=== PATIENT | female | born 1955 | race Caucasian/White ===

== ENCOUNTER 2024-02-01 13:01 | Emergency (ER) | payer OTHER, SELFPAY ==
[2024-02-01 13:14] VITALS: BP 158/77; PULSE 85; TEMP 37.1; O2SAT 99; BMI 37.2
--- NOTE | 2024-02-01 13:20 | ED_ITS ---
HPI HPI - General Adult General Chief complaint: Recheck/Abnormal Lab/Rx Stated complaint: CONGESTION Time Seen by Provider: 02/01/24 13:16 Source: patient Mode of arrival: walk-in Limitations: no limitations History of Present Illness HPI narrative: 68-year-old female presents to the emergency department for a COVID test. She has no symptoms. She has been around her son who has some symptoms and was around somebody who has COVID. She has no fever cough or shortness of breath or congestion. Related Data Allergies Allergy/AdvReac Type Severity Reaction Status Date / Time acetaminophen [From Tylenol] AdvReac Nausea Verified 02/01/24 13:15 Opioid HPI Opioid Management Most Recent Opioid Data: No Data to Display Review of Systems ROS Narrative A ten point review of systems is negative except as noted above. PFSH PFSH Social History Little interest or pleasure in doing things: not at all Feeling down, depressed, or hopeless: not at all Exam Narrative Exam Narrative: Nurses note and vital signs reviewed and patient is not hypoxic. General: The patient appears well and in no apparent distress. Patient is resting comfortably sitting on the examination chair. Skin: Warm, dry, no pallor noted. There is no rash noted. Head: Normocephalic, atraumatic Eye: Normal conjunctiva, no drainage Ears, Nose, Mouth, and Throat: oral mucosa is moist. Nares patent. Cardiovascular: Regular Rate and Rhythm Respiratory: Patient is in no distress, no accessory muscle use, lungs are clear to auscultation, no wheezing, rales or rhonchi Back: non-tender GI: Soft and nontender Musculoskeletal: The patient has no evidence of calf tenderness, no pitting edema, symmetrical pulses noted bilaterally Neurological: A&O, normal speech Psychiatric: Cooperative Constitutional Vital Signs, click to edit/add: Last Vital Signs Temp 98.7 F 02/01/24 13:14 Pulse 85 02/01/24 13:14 Resp 16 02/01/24 13:14 BP 158/77 H 02/01/24 13:14 Pulse Ox 99 02/01/24 13:14 O2 Del Method Room Air 02/01/24 13:14 Course Vital Signs Vital signs: Vital Signs Temperature 98.7 F 02/01/24 13:14 Pulse Rate 85 02/01/24 13:14 Respiratory Rate 16 02/01/24 13:14 Blood Pressure 158/77 H 02/01/24 13:14 Pulse Oximetry 99 02/01/24 13:14 Oxygen Delivery Method Room Air 02/01/24 13:14 Temperature 98.7 F 02/01/24 13:14 Pulse Rate 85 02/01/24 13:14 Respiratory Rate 16 02/01/24 13:14 Blood Pressure 158/77 H 02/01/24 13:14 Pulse Oximetry 99 02/01/24 13:14 Oxygen Delivery Method Room Air 02/01/24 13:14 Medical Decision Making MDM Narrative Medical decision making narrative: Both her COVID and influenza test are negative and she is able to be discharged home. She has no symptoms. Differential Diagnosis Differential Diagnosis: COVID, influenza Lab Data Lab results reviewed: Yes I reviewed the patient's lab results Labs: Lab Results 02/01/24 Range/Units 13:20 Influenza Type A Ag Negative Influenza Type B Ag Negative SARS-CoV-2 Ag (CV2AG) Negative (NEGATIVE) Discharge Plan Discharge Chief Complaint: Recheck/Abnormal Lab/Rx Clinical Impression: No problem, feared complaint unfounded Patient Disposition: Home, Self-Care Time of Disposition Decision: 14:05 Condition: Good Mode of Transportation: Private Vehicle Print Language: [place] Instructions: COVID-19: Slow the Coronavirus Spread (ED), Face Coverings (Mask s) and COVID-19 (ED) Referrals: Physician,Non-Staff, MD [Primary Care Provider] - 1 week
[2024-02-01 13:53] LABS: Influenza Virus A Antigen Negative; Influenza Virus B Antigen Negative; Internal Control Within Normal Limits; SARS-CoV-2 Ag NEGATIVE (NEGATIVE)
--- NOTE | 2024-02-01 13:57 | PC.NURSE ---
Pt arrived to ED with son who has COVID symptoms and is requesting test. Pt has no flu like symptoms.
[2024-02-01 14:15] VITALS: BP 152/82; PULSE 80; O2SAT 99
== END 2024-02-01 14:15 | disposition home or self-care (01) ==
PROVIDERS: Emergency Provider Emergency Medicine
DX: Z20.822 Contact with and (suspected) exposure to COVID-19 (principal)
CPT/HCPCS: 87804; 87811; 99283

== ENCOUNTER 2024-02-05 18:10 | Emergency (ER) | payer OTHER, SELFPAY ==
[2024-02-05 18:16] VITALS: BP 155/73; PULSE 115; TEMP 37.2; O2SAT 100; BMI 38.4
[2024-02-05 18:42] LABS: Internal Control Within Normal Limits
[2024-02-05 18:44] LABS: SARS-CoV-2 Ag POSITIVE (NEGATIVE)
--- NOTE | 2024-02-05 18:53 | ED_ITS ---
HPI HPI - General Adult General Chief complaint: Upper Respiratory Infection Stated complaint: COVID Re-check Time Seen by Provider: 02/05/24 18:15 Source: patient Mode of arrival: walk-in Limitations: no limitations History of Present Illness HPI narrative: 68-year-old female to the emergency department with chief complaint of nasal congestion. Patient concerned she may have COVID. Had test here on the fourth that was negative. She would like retested. She denies any shortness of breath. Denies any fever, sweats, chills. Reports she is already improved significantly. Related Data Previous Rx's ?Medication ?Instructions ?Recorded reytrtqhmyomgho-ioibkqrladxjlth-DN 5 ml PO Q4H PRN cold symptoms #118 02/05/24 2 mg-30 mg-10 mg/5 mL oral syrup mL (Bromfed DM) Allergies Allergy/AdvReac Type Severity Reaction Status Date / Time acetaminophen [From Tylenol] AdvReac Nausea Verified 02/01/24 13:15 Opioid HPI Opioid Management Most Recent Opioid Data: No Data to Display Review of Systems ROS Status of ROS 10 or more systems reviewed and unremark able except as noted in history and below PFSH PFSH Social History Little interest or pleasure in doing things: not at all Feeling down, depressed, or hopeless: not at all Exam Narrative Exam Narrative: VITALS: I have reviewed the triage vital signs. GENERAL: Well developed, well appearing adult in no acute distress. NEURO: Alert and oriented. Moves all extremities. Face is symmetric and expressive. EYES: PERRL. No scleral icterus or conjunctival injection. No discharge. HENT: Normocephalic, atraumatic. Hearing is grossly intact. Nares grossly patent and without discharge. Mucous membranes moist. NECK: No JVD. Patient moves neck without restriction. CARDIO: Rhythm regular. Normal rate. No murmur, rub, or gallop. Pulses equal bilaterally in the upper and lower extremity. No lower extremity edema. PULM: Lungs clear to auscultation in all paulino. No wheezes, rales, or rhonchi. No conversational dyspnea. No splinting, stridor, or accessory muscle use. GI/: Abdomen is soft and non-tender. Normoactive bowel sounds. EXTREMITIES: Symmetric muscle bulk. No joint swelling. No clubbing, cyanosis, or deformity. SKIN: Warm and dry. Normal turgor. No rash or lesions appreciated. PSYCH: Mood, affect, and interaction is appropriate to the setting. Constitutional Vital Signs, click to edit/add: Last Vital Signs Temp 98.9 F 02/05/24 18:16 Pulse 115 H 02/05/24 18:16 Resp 20 02/05/24 18:16 BP 155/73 H 02/05/24 18:16 Pulse Ox 100 02/05/24 18:16 O2 Del Method Room Air 02/05/24 18:16 Course Vital Signs Vital signs: Vital Signs Temperature 98.9 F 02/05/24 18:16 Pulse Rate 115 H 02/05/24 18:16 Respiratory Rate 20 02/05/24 18:16 Blood Pressure 155/73 H 02/05/24 18:16 Pulse Oximetry 100 02/05/24 18:16 Oxygen Delivery Method Room Air 02/05/24 18:16 Temperature 98.9 F 02/05/24 18:16 Pulse Rate 115 H 02/05/24 18:16 Respiratory Rate 20 02/05/24 18:16 Blood Pressure 155/73 H 02/05/24 18:16 Pulse Oximetry 100 02/05/24 18:16 Oxygen Delivery Method Room Air 02/05/24 18:16 Medical Decision Making MDM Narrative Medical decision making narrative: 68-year-old female to the emergency department chief plaint nasal congestion. Vital stable, the patient is afebrile. Patient is concerned she may have COVID. She is requesting retest. Repeat test is positive. She is already several days into her symptoms. She has mild symptoms. We discussed Paxlovid and medications. She would only like something for congestion. Bromfed was prescribed. Lab Data Lab results reviewed: Yes I reviewed the patient's lab results Labs: Lab Results 02/05/24 Range/Units 18:20 SARS-CoV-2 Ag (CV2AG) Positive A (NEGATIVE) Discharge Plan Discharge Chief Complaint: Upper Respiratory Infection Clinical Impression: COVID-19 Patient Disposition: Home, Self-Care Time of Disposition Decision: 18:52 Condition: Good Mode of Transportation: Private Vehicle Prescriptions / Home Meds: New zbaljeeopfozkrt-ugozkosfz-CJ [Bromfed DM] 2-30-10 mg/5 mL syrup 5 ml PO Q4H PRN (Reason: cold symptoms) Qty: 118 [id number] Print Language: [place]ian Instructions: COVID-19 (Coronavirus Disease 2019) (ED), COVID-19: Slow the Coronavirus Spread (ED), How to Recover from COVID-19 at Home (ED) Referrals: Physician,Non-Staff, MD [Primary Care Provider] - 1 week
[2024-02-05 18:55] VITALS: BP 142/88; PULSE 88; O2SAT 99
== END 2024-02-05 18:57 | disposition home or self-care (01) ==
PROVIDERS: Emergency Provider Student in an Organized Health Care Education/Training Program
DX: U07.1 COVID-19 (principal)
CPT/HCPCS: 87811; 99283